=== PATIENT | female | born 1980 | race African-American/Black ===

== ENCOUNTER 2016-07-23 14:15 | Emergency (ER) | payer OTHER ==
[~2016-07-23] VITALS: Ht 172.7 cm; Wt 96.3 kg
[~2016-07-23 14:15] MED LIST: ALEVE220 M2 PO; ATARAX,VISTARIL25 MG PO; AUGMENTIN875 MG PO; BENADRYL25 MG PO; BENADRYL50 MG PO; BENTYL10 MG PO; CIPRO500 MG PO; CLINDAMYCIN HC300 MG PO; CYCLOBENZAPRINE5 MG PO; DAILY VALUE1 EACH PO; FIORICET 50-301 EACH PO; FIORICET,ESG1 TABLET PO; FLEXERIL10 MG PO; IBUPROFEN400 MG PO; IRON CHEWS15 MG PO; MEDROL DOSEPAK4 MG PO; MOBIC7.5 MG PO; MULTIVITAMIN1 EAC1 PO; NAPROSYN500 MG PO; NAPROXEN500 MG PO; NOHOMEMEDS; PREDNISONE10 M1 PO; PREDNISONE20 MG PO; REGLAN10 MG PO; TESSALON200 MG PO; TRAMADOL HCL50 MG PO; ULTRAM50 MG PO; VALIUM2 MG PO; VENTOLIN HFA18 GM IH; VICODIN 5-3001 EACH PO; ZOFRAN4 MG PO
[2016-07-23 15:18] LABS: HEMATOCRIT 28.7 % (36.0-46.0); MCH 18.7 PG (29.0-34.0); MCHC 29.3 G/DL (30.0-36.0); MCV 63.9 FL (83-99); MEAN PLAT.VOLUME 9.7 uM^3 (9.5-12.4); PLATELET COUNT 285 K/uL (156-360); RBC DIS.WIDTH-CV 17.6 % (11.8-14.6); RBC DIS.WIDTH-SD 38.9 % (39-53); RED BLOOD COUNT 4.49 M/uL (3.80-5.20); WHITE BLOOD COUNT 9.4 K/uL (4.1-10.2)
[2016-07-23 15:30] LABS: CHLORIDE 108 mEq/L (99-109); POTASSIUM 3.4 mEq/L (3.7-5.4); SODIUM 139 mEq/L (136-147)
[2016-07-23 15:33] LABS: GLUCOSE 101 mg/dL (70-99)
[2016-07-23 15:34] LABS: ANION GAP 7 MEQ/L (2-14)
[2016-07-23 15:35] LABS: TOTAL BILIRUBIN 0.4 mg/dL (0.0-1.0)
[2016-07-23 15:36] LABS: ALKALINE PHOSPHATASE 70 IU/L (3-129); GFR ESTIMATE (CALCULATED) > 59 mL/min/
[2016-07-23 15:37] LABS: UREA NITROGEN (BUN) 9 mg/dL (9-23)
[2016-07-23 15:40] LABS: LIPASE 223 U/L (1.0-51.0)
[2016-07-23 15:47] LABS: QUANTITATIVE HCG < 4.0 MIU/ML
[2016-07-23 15:55] LABS: ADD MIUA? YES; BILIRUBIN NEGATIVE; BLOOD NEGATIVE; COLOR YELLOW ((YELLOW)); GLUCOSE (STRIP) NEGATIVE; KETONES NEGATIVE; LEUKOCYTES NEGATIVE; NITRITE NEGATIVE; PH, URINE 6.5 (5-8); PROTEIN (STRIP) NEGATIVE; SPECIFIC GRAVITY 1.006 (1.000-1.030); UROBILINOGEN 0.2 MG/DL (0.2-1.0)
[2016-07-23 16:15] LABS: BACTERIA NONE SEEN /HPF; EPITHELIAL CELLS 1+ /HPF; MUCUS NONE SEEN /LPF; RED BLOOD CELLS 0-5 /HPF (0-5); UCUL ADDED? NO; WHITE BLOOD CELLS 0-5 /HPF (0-5)
[2016-07-23] MEDS ORDERED: MULTIVITAMIN1 EAC2 PO (17:10)
[2016-07-23 17:20] LABS: AMYLASE 55 IU/L (1-118)
[2016-07-23] MEDS ORDERED: ULTRAM50 MG PO (19:10)
[2016-07-23] MEDS ORDERED: ZOFRAN ODT4 MG PO (19:10)
[2016-07-23 19:31] VITALS: BP 124/70
== END 2016-07-23 19:32 | disposition home or self-care (01) ==
LOC: EME 14:15
DX: R10.9 Unspecified abdominal pain (principal); R11.2 Nausea with vomiting, unspecified; R19.7 Diarrhea, unspecified; R53.81 Other malaise; R32 Unspecified urinary incontinence; R07.9 Chest pain, unspecified; M54.5 Low back pain; R06.09 Other forms of dyspnea; Z87.442 Personal history of urinary calculi; F17.200 Nicotine dependence, unspecified, uncomplicated
CPT/HCPCS: 74022; 76705; 80053; 81003; 82150; 83690; 84702; 85027; 99281; 99285; J7030

== ENCOUNTER 2017-02-13 23:11 | Emergency (ER) | payer OTHER ==
[~2017-02-13] VITALS: Ht 172.7 cm; Wt 90.9 kg
[~2017-02-13 23:11] MED LIST changes: +MULTIVITAMIN1 EAC2 PO; +ZOFRAN ODT4 MG PO
[2017-02-14 00:58] LABS: D-DIMER ELISA < 150.00 ng/mLDDU (<230)
[2017-02-14 00:59] LABS: HEMATOCRIT 27.2 % (36.0-46.0); MCH 17.3 PG (29.0-34.0); MCHC 27.2 G/DL (30.0-36.0); MCV 63.7 FL (83-99); MEAN PLAT.VOLUME 10.3 uM^3 (9.5-12.4); PLATELET COUNT 360 K/uL (156-360); RBC DIS.WIDTH-CV 18.2 % (11.8-14.6); RED BLOOD COUNT 4.27 M/uL (3.80-5.20); WHITE BLOOD COUNT 6.6 K/uL (4.1-10.2)
[2017-02-14 01:03] LABS: CHLORIDE 109 mEq/L (99-109); POTASSIUM 4.3 mEq/L (3.7-5.4); SODIUM 144 mEq/L (136-147)
[2017-02-14 01:05] LABS: GLUCOSE 98 mg/dL (70-99)
[2017-02-14 01:06] LABS: ANION GAP 17 MEQ/L (2-14)
[2017-02-14 01:08] LABS: TROP-I INTERPRETATION NEGATIVE; TROPONIN-I < 0.01 ng/mL (0.0-0.30)
[2017-02-14 01:09] LABS: GFR ESTIMATE (CALCULATED) > 59 mL/min/; UREA NITROGEN (BUN) 7 mg/dL (9-23)
[2017-02-14 01:18] LABS: QUANTITATIVE HCG < 4.0 MIU/ML
[2017-02-14 03:33] LABS: TROP-I INTERPRETATION NEGATIVE; TROPONIN-I < 0.01 ng/mL (0.0-0.30)
[2017-02-14 05:38] VITALS: BP 123/74
== END 2017-02-14 05:39 | disposition home or self-care (01) ==
LOC: EME 23:11
PROVIDERS: Emergency Medicine; Physician Assistant
DX: R07.9 Chest pain, unspecified (principal); F10.129 Alcohol abuse with intoxication, unspecified; D64.9 Anemia, unspecified; F17.200 Nicotine dependence, unspecified, uncomplicated
CPT/HCPCS: 71020; 80048; 81003; 84484; 84702; 85027; 85379; 93005; 99281; 99284

== ENCOUNTER 2018-01-21 19:49 | Emergency (ER) | payer SELFPAY ==
[~2018-01-21] VITALS: Ht 172.7 cm; Wt 93.6 kg
[2018-01-21 20:56] LABS: HEMATOCRIT 42.5 % (36.0-46.0); MCH 27.1 PG (29.0-34.0); MCHC 32.9 G/DL (30.0-36.0); MCV 82.2 FL (83-99); PLATELET COUNT 353 K/uL (156-360); RBC DIS.WIDTH-CV 15.9 % (11.8-14.6); RBC DIS.WIDTH-SD 45.9 % (39-53); RED BLOOD COUNT 5.17 M/uL (3.80-5.20); WHITE BLOOD COUNT 9.2 K/uL (4.1-10.2)
[2018-01-21 21:41] LABS: ALBUMIN 4.4 g/dL (3.2-4.8); CHLORIDE 109 mEq/L (99-109); POTASSIUM 4.1 mEq/L (3.7-5.4)
[2018-01-21 21:42] LABS: SODIUM 139 mEq/L (136-147)
[2018-01-21 21:44] LABS: GLUCOSE 109 mg/dL (70-99); TOTAL PROTEIN 8.1 g/dL (6.4-8.3)
[2018-01-21 21:46] LABS: TOTAL BILIRUBIN 0.2 mg/dL (0.0-1.0)
[2018-01-21 21:47] LABS: ALKALINE PHOSPHATASE 79 IU/L (3-129); CREATININE 0.8 mg/dL (0.6-1.3); GFR ESTIMATE (CALCULATED) > 59 mL/min/
[2018-01-21 21:49] LABS: AST (GOT) 13 IU/L (2-34); UREA NITROGEN (BUN) 7 mg/dL (9-23)
[2018-01-21 21:50] LABS: ALT (GPT) 11 IU/L (3-49)
[2018-01-21 21:52] LABS: QUANTITATIVE HCG < 4.0 MIU/ML
[2018-01-21 23:18] LABS: APPEARANCE CLEAR ((CLEAR)); BILIRUBIN NEGATIVE; BLOOD NEGATIVE; COLOR YELLOW ((YELLOW)); GLUCOSE (STRIP) NEGATIVE; KETONES NEGATIVE; LEUKOCYTES NEGATIVE; NITRITE NEGATIVE; PROTEIN (STRIP) NEGATIVE; SPECIFIC GRAVITY 1.013 (1.000-1.030); UCUL ADDED? NO
[2018-01-22] VITALS: BP 117/76
== END 2018-01-22 00:05 | disposition home or self-care (01) ==
LOC: EME 19:49 → RME 19:49
DX: S39.011A Strain of muscle, fascia and tendon of abdomen, initial encounter (principal); N85.2 Hypertrophy of uterus; F17.200 Nicotine dependence, unspecified, uncomplicated; Z87.442 Personal history of urinary calculi; Z98.890 Other specified postprocedural states; Z88.2 Allergy status to sulfonamides; Z88.8 Allergy status to other drugs, medicaments and biological substances
CPT/HCPCS: 74177; 80053; 81003; 83690; 84702; 85027; 99281; 99284; J7030